=== PATIENT | female | born 1970 | race Hispanic/Latino ===

== ENCOUNTER 2020-10-26 15:31 | Emergency (ER) | payer SELFPAY ==
[2020-10-26 16:01] VITALS: BP 153/90; PULSE 90; RESP 18; TEMP 37.2; O2SAT 97
--- NOTE | 2020-10-26 19:57 | ED.EYEPROB ---
HPI - Eye Problem General Chief complaint: Eye Problems <Rebecca Carrizales PA-C - Last Filed: 10/26/20 21:12> Stated complaint: reddness to left eye <Rebecca Carrizales PA-C - Last Filed: 10/26/20 21:12> Time Seen by Provider: 10/26/20 18:55 <Rebecca Carrizales PA-C - Last Filed: 10/26/20 21:12> Source: patient <Rebecca Carrizales PA-C - Last Filed: 10/26/20 21:12> Mode of arrival: ambulatory <Rebecca Carrizales PA-C - Last Filed: 10/26/20 21:12> Limitations: no limitations <Rebecca Carrizales PA-C - Last Filed: 10/26/20 21:12> History of Present Illness HPI Narrative: This is a 49 year old female that presents to the ER for left eye irritation x 4 days. No known injury or trauma. Reports the eye has been red and is tearing. Reports blurry vision in the eye. She does not wear contacts. She does wear glasses for reading. Denies fever, double vision or vomiting. <Rebecca Carrizales PA-C - Last Filed: 10/26/20 21:12> Related Data Allergies/adverse reactions: Allergies Allergy/AdvReac Type Severity Reaction Status Date / Time No Known Allergies Allergy Verified 10/26/20 18:32 <Rebecca Carrizalse PA-C - Last Filed: 10/26/20 21:12> Review of Systems Review of Systems: Narrative: CONSTITUTIONAL: Denies fever EYES: Reports visual changes, redness, and discharge. <Rebecca Carrizales PA-C - Last Filed: 10/26/20 21:12> All systems reviewed & are unremarkable except as noted in HPI and below <Rebecca Carrizales PA-C - Last Filed: 10/26/20 21:12> [facility] [place] Past Medical History Medical History: Medical History (Updated 10/26/20 @ 19:59 by Rebecca Carrizales PA-C) No active medical problems <Rebecca Carrizales PA-C - Last Filed: 10/26/20 21:12> Social History Social History: Social History (Updated 10/26/20 @ 19:59 by Rebecca Carrizales PA-C) Substance use: never Gender identity (if verbalized by the patient): Female <Rebecca Carrizales PA-C - Last Filed: 10/26/20 21:12> Exam Narrative: Exam Narrative: GENERAL: Well-appearing, well-nourished, and in no acute distress. HEAD: Normocephalic, atraumatic. EYES: EOMI. Left eye with conjunctival injection and tearing. No foreign bodies noted, eyelid everted. No uptake on fluorescein stain exam. Pressure in the left eye 22, right eye 14. Left pupil with haziness at the superior portion. Pain when light is shined in affected and unaffected eye EXTREMITIES: Normal range of motion. No edema. SKIN: Warm, dry, no rash. NEURO: No focal deficits. Alert and oriented x3. PSYCH: Normal mood and affect <Rebecca Carrizales PA-C - Last Filed: 10/26/20 21:12> Course Vital Signs Vital signs: Vital Signs Temperature 37.2 C 10/26/20 16:01 Pulse Rate 90 10/26/20 16:01 Respiratory Rate 18 10/26/20 16:01 Blood Pressure 153/90 H 10/26/20 16:01 Pulse Oximetry 97 10/26/20 16:01 Temperature 37.2 C 10/26/20 16:01 Pulse Rate 90 10/26/20 16:01 Respiratory Rate 18 10/26/20 16:01 Blood Pressure 153/90 H 10/26/20 16:01 Pulse Oximetry 97 10/26/20 16:01 <Rebecca Carrizales PA-C - Last Filed: 10/26/20 21:12> Vital Signs Temperature 37.2 C 10/26/20 16:01 Pulse Rate 90 10/26/20 16:01 Respiratory Rate 18 10/26/20 16:01 Blood Pressure 153/90 H 10/26/20 16:01 Pulse Oximetry 97 10/26/20 16:01 Temperature 37.2 C 10/26/20 16:01 Pulse Rate 90 10/26/20 16:01 Respiratory Rate 18 10/26/20 16:01 Blood Pressure 153/90 H 10/26/20 16:01 Pulse Oximetry 97 10/26/20 16:01 <Jesús Ta MD - Last Filed: 10/26/20 21:21> MDM - Eye Problem MDM Narrative Medical decision making narrative: For this patient encounter, I reviewed the [employer] or PA documentation, treatment plan, and medical decision making; and I had [id number] time with this patient. Erythema with ? limbic injection as well, pain, vision loss, consider iritis, need to d/w ophtho given loss of acuity <Jesús Ta MD - Last
[2020-10-26] MEDS: ACETAMINOPHEN 500 MG TABLET 1000 MG PO (21:30)
[2020-10-26 21:41] VITALS: BP 147/100; PULSE 72; RESP 16; TEMP 36.8; O2SAT 97
== END 2020-10-26 21:55 | disposition short-term general hospital (02) ==
PROVIDERS: Emergency Provider Emergency Medicine
DX: H20.00 Unspecified acute and subacute iridocyclitis (principal)
CPT/HCPCS: 99283; A9270